=== PATIENT | female | born 1965 | race Caucasian/White ===

== ENCOUNTER → 2016-06-22 | Outpatient (CLI) | payer OTHER ==
[2016-06-22 14:02] LABS: BASO % 0.6 %; BASO ABS # 0.02 K/uL (0-0.2); COMPLETE YES; EOS % 8.4 %; HEMATOCRIT 42.5 % (37-47); IG% 0.3 %; LYMPH % 22.5 %; LYMPH ABS # 0.75 K/uL (1.2-3.4); MEAN CELL VOLUME 88.9 fL (80-100); MEAN CORPUSCULAR HEMOGLOBIN 31.4 pg (25-34); MEAN CORPUSCULAR HGB CONC 35.3 g/dl (32-36); MEAN PLATELET VOLUME 10.5 fL (7.4-10.4); MONO % 13.8 %; NEUT % 54.4 %; PLATELET COUNT 162 K/uL (130-400); RED BLOOD COUNT 4.78 M/uL (4.2-5.4); WHITE BLOOD COUNT 3.33 K/uL (4.8-10.8)
[2016-06-22 14:27] LABS: BLOOD UREA NITROGEN 8 mg/dl (7-18); BUN/CREATININE RATIO 18.4 (10-20); CALCIUM 8.6 mg/dl (8.5-10.1); CARBON DIOXIDE 25 mmol/L (21-32); CHLORIDE 100 mmol/L (98-107); CREATININE 0.45 mg/dl (0.60-1.20); GLUCOSE 91 mg/dl (70-99); POTASSIUM 3.7 mmol/L (3.5-5.1); SODIUM 136 mmol/L (136-145)
== END | disposition home or self-care (01) ==
LOC: C.LABMFLN 08:54
PROVIDERS: ATTEND Psychiatry & Neurology Neurology
DX: G40.909 Epilepsy, unspecified, not intractable, without status epilepticus (principal)

== ENCOUNTER → 2016-09-27 | Outpatient (CLI) | payer OTHER | END | disposition home or self-care (01) | LOC: C.LABMFLN 13:54 | PROVIDERS: ATTEND Family Medicine | DX: L29.2 Pruritus vulvae (principal) ==

== ENCOUNTER → 2017-02-22 | Outpatient (CLI) | payer OTHER | LOC: C.PAPS 11:46 | PROVIDERS: ATTEND Obstetrics & Gynecology | DX: Z12.4 Encounter for screening for malignant neoplasm of cervix (principal) ==

== ENCOUNTER → 2017-03-29 | Outpatient (CLI) | payer OTHER ==
--- NOTE | 2017-03-29 15:52 | MAMMOGRAPHY REPORT ---
BILATERAL DIGITAL SCREENING MAMMOGRAM WITH CAD: 03/29/2017 CLINICAL HISTORY: Routine screening. Patient has no complaints. TECHNIQUE: Current study was also evaluated with a Computer Aided Detection (CAD) system. Bilateral CC and MLO views were obtained. Note that the imaging is somewhat limited due to the patient's ment al condition; there is mild motion artifact on the right cc view. COMPARISON: Comparison is made to exams dated: 03/28/2016 mammogram, 03/25/2015 mammogram, 4 mammogram, 02/01/2012 mammogram - [facility], and 12/30/2008. BREAST COMPOSITION: The tissue of both breasts is extremely dense, which lowers the sensitivity of m ammography. FINDINGS: No suspicious masses, calcifications, or areas of architectural distortion are noted in ei ther breast. There has been no significant interval change compared to prior exams. Scattered bilater al benign-appearing calcifications are not significantly changed. IMPRESSION: ACR BI-RADS CATEGORY 2: BENIGN There is no mammographic evidence of malignancy. A 1 year screening mammogram is recommended. The pa tient will receive written notification of the results. Approximately 10% of breast cancers are not detected with mammography. A negative mammographic report should not delay biopsy if a clinically suggestive mass is present. Gabby Guadarrama M.D. ah/:03/29/2017 15:32:38 [employer]: Lisa WILL(Antonietta)(M), [facility] letter sent: Normal 1/2 BI-RADS Code: ACR BI-RADS Category 2: Benign
== END | disposition home or self-care (01) ==
LOC: C.MAMM 09:06
PROVIDERS: ATTEND Family Medicine
DX: Z12.31 Encounter for screening mammogram for malignant neoplasm of breast (principal)

== ENCOUNTER → 2017-05-10 | Outpatient (CLI) | payer OTHER ==
[2017-05-10 13:11] LABS: BASO % 0.4 %; BASO ABS # 0.01 K/uL (0-0.2); COMPLETE YES; EOS % 8.3 %; HEMATOCRIT 43.1 % (37-47); LYMPH ABS # 0.89 K/uL (1.2-3.4); MEAN CELL VOLUME 90.7 fL (80-100); MEAN CORPUSCULAR HEMOGLOBIN 31.6 pg (25-34); MEAN CORPUSCULAR HGB CONC 34.8 g/dl (32-36); MONO % 12.9 %; NEUT % 46.4 %; PLATELET COUNT 140 K/uL (130-400); RED BLOOD COUNT 4.75 M/uL (4.2-5.4); WHITE BLOOD COUNT 2.78 K/uL (4.8-10.8)
[2017-05-10 13:14] LABS: BLOOD UREA NITROGEN 8 mg/dl (7-18); CALCIUM 8.6 mg/dl (8.5-10.1); CARBON DIOXIDE 27 mmol/L (21-32); CHLORIDE 98 mmol/L (98-107); CREATININE 0.44 mg/dl (0.60-1.20); GLUCOSE 78 mg/dl (70-99); POTASSIUM 3.4 mmol/L (3.5-5.1); SODIUM 131 mmol/L (136-145)
[2017-05-10 13:19] LABS: ALB/GLOB RATIO 1.2 (0.9-2); ALKALINE PHOSPHATASE 90 U/L (45-117); ALT/SGPT 22 U/L (12-78); AST/SGOT 14 U/L (15-37)
[2017-05-13 22:27] LABS: PHENOBARBITAL 32.6 mg/L (15.0-40.0)
== END | disposition home or self-care (01) ==
LOC: C.LABMFLN 08:10
PROVIDERS: ATTEND Psychiatry & Neurology Neurology
DX: G40.909 Epilepsy, unspecified, not intractable, without status epilepticus (principal)

== ENCOUNTER 2017-06-17 09:48 | Emergency (ER) | payer OTHER ==
[~2017-06-17] VITALS: Ht 144.8 cm; Wt 48.6 kg
[2017-06-17 09:54] VITALS: TEMP 36.6; Ht 144.8 cm; Wt 48.6 kg
[2017-06-17] MEDS ORDERED: CLON1TAB3 PO (10:16)
[2017-06-17] MEDS ORDERED: DENO60SO SQ (10:16)
[2017-06-17] MEDS ORDERED: PRIM250T9 PO (10:16)
[2017-06-17 11:07] VITALS: O2SAT 97
[2017-06-17 11:17] LABS: BASO % 0.2 %; BASO ABS # 0.01 K/uL (0-0.2); EOS % 2.6 %; EOS ABS # 0.16 K/uL (0-0.5); HEMOGLOBIN 14.3 g/dL (12.0-16.0); IG# 0.03 K/uL (0.00-0.02); LYMPH % 15.8 %; LYMPH ABS # 0.97 K/uL (1.2-3.4); MEAN CELL VOLUME 93.3 fL (80-100); MEAN CORPUSCULAR HEMOGLOBIN 31.8 pg (25-34); MEAN PLATELET VOLUME 10.6 fL (7.4-10.4); MONO % 12.2 %; MONO ABS # 0.75 K/uL (0.11-0.59); NEUT % 68.7 %; NEUT ABS # 4.22 K/uL (1.4-6.5); PLATELET COUNT 148 K/uL (130-400); RED CELL DISTRIBUTION WIDTH CV 13.1 % (11.5-14.5); RED CELL DISTRIBUTION WIDTH SD 44.5 fL (36.4-46.3); WHITE BLOOD COUNT 6.14 K/uL (4.8-10.8)
[2017-06-17 11:36] LABS: ALBUMIN 3.8 gm/dl (3.4-5.0); ALT/SGPT 30 U/L (12-78); BLOOD UREA NITROGEN 12 mg/dl (7-18); CALCIUM 8.9 mg/dl (8.5-10.1); CARBON DIOXIDE 25 mmol/L (21-32); CREATININE 0.41 mg/dl (0.60-1.20); GLUCOSE 82 mg/dl (70-99); SODIUM 134 mmol/L (136-145)
--- NOTE | 2017-06-17 11:41 | EMERGENCY ROOM VISIT NOTE ---
History First contact with patient: 10:45 Chief Complaint: SEIZURE Stated Complaint: HIT HER HEAD, SEISURES Nursing Triage Summary: 1 week before patient fell and hit her head. -loc. on patient had 3 seizures. on 06/15 patient had another seizure. "she must have fell and hit her head again because her nose started bleeding." mother elvis medical attention then. mother states she has not had another seizure since saturday but was referred to ER by neurologist. hx of seizures. mother states seizures are usually more under control with medication. RN asked patient if she has any pain paitient points and rubs right ribs. History of Present Illness The patient is a 52 year old female who presents to the Emergency Room via private vehicle accompanied by mother with complaints of "hit her head, seizures ". The patient lives at home with her mother, who is in charge of her care. The patient does have history of seizures that is controlled with Klonopin. She follows with Dr. Mukherjee. The patient normally before struck her head against a cabinet accidentally. There was no loss of consciousness but then on had 3 seizures. She then notes that on June 15 there was another seizure. She believes that when she sees she fell to the ground and struck her head. This caused her nose to bleed. There is no bruising around her eyes. The mother notes that although the patient is close to her baseline, she is not her typical cheery self therefore prompting a call to the neurologist. She notes that she spoke with Dr. Jack Alexandra who recommended to go to the emergency department. The mother notes that although she does have a seizure history, they're not typically this frequent. The patient also complains of pain in the right rib region status post fall. Patient denies any other areas of pain. Review of Systems A complete 10-point Review of Systems was discussed with the patient, with pertinent positives and negatives listed in the History of Present Illness. All remaining Review of Systems questions can be considered negative unless otherwise specified. Past Medical/Surgical History Seizures. Family History Noncontributory Social History Smoking Status: Never Smoker Patient lives at home with mother. Current/Historical Medications Scheduled Clonazepam (Klonopin), 1 MG PO QPM Denosumab (Prolia), 60 MG SQ Q6MO Primidone (Mysoline), 250 MG PO QID Physical Exam Vital Signs Date Time Temp Pulse Resp B/P (MAP) Pulse Ox O2 Delivery O2 Flow Rate FiO2 06/17/17 13:28 103 20 120/71 98 06/17/17 13:04 103 20 120/71 98 Room Air 06/17/17 12:29 104 06/17/17 11:36 101 20 134/79 98 Room Air 06/17/17 11:07 97 Room Air 06/17/17 09:54 36.6 119 18 135/79 96 Room Air Physical Exam VITAL SIGNS - Vital signs and nursing notes were reviewed. Stable. Tachycardic. GENERAL -52-year-old female appearing her stated age who is in no acute distress. Communicates well with provider and answers questions appropriately. SKIN - Without rashes. No petechial rashes. There are bruises noted underneath the eyes. HEAD - NC/AT. EYES - PERRL with EOMI bilaterally. Sclera anicteric. EARS - No deformities of external structures noted on gross examination bilaterally. No pain elicited with palpation of the tragus bilaterally. External auditory canals without discharge or otorrhea. Tympanic membranes pearly fatima without retraction or bulging. No fluid or purulent material visualized behind the TM. Handle of malleus, umbo, cone of light, pars tensa/ flaccid all easily visualized. No hemotympanum. NOSE - Midline and without cyanosis. No epistaxis or purulent drainage noted. Septum midline without deviation or septal hematoma noted. MOUTH/OROPHARYNX - Without perioral cyanosis. Buccal mucosa pink and moist and without leukoplakia. Tongue midline with equal elevation of palate bilaterally. No tonsillar hypertrophy, erythema, or exudates noted. Fair dentition noted. NECK - Neck with FROM. No C-spine tenderness. LUNGS - Chest wall symmetric without accessory muscle use, intercostals retractions, or central cyanosis. Normal vesicular breath sounds CTA B/L. No wheezes, rales, or rhonchi appreciated. CARDIAC - RRR with S1/S2. No murmur, rubs, or gallops appreciated. ABDOMEN - Abdominal contour normal without pulsations or visible masses. BS normoactive all four quadrants. No tenderness, palpable masses, hepatosplenomegaly, or ascites noted. EXTREMITIES - No clubbing or peripheral cyanosis. No pretibial edema present. + 5/5 strength noted in UE/LE bilaterally. NEUROLOGIC - Cranial nerves II through XII grossly intact. Sensory intact to light touch throughout. PSYCH - A&O , and cooperates fully with examiner. Pt is very pleasant and interacts well with examiner. Medical Decision & Procedures ER Provider Diagnostic Interpretation: CT HEAD WITHOUT CONTRAST (CT) CLINICAL HISTORY: Seizure. Head trauma. COMPARISON STUDY: No previous studies for comparison. TECHNIQUE: Axial CT of the brain is performed from the vertex to the skull base. IV contrast was not administered for this examination. A dose lowering technique was utilized adhering to the principles of ALARA. CT DOSE: 537.48 mGy.cm FINDINGS: No intra or extra-axial mass lesions are visualized. There is no CT evidence of acute cortical infarction. There is no evidence of midline shift. There is no acute hemorrhage. No calvarial fractures are visualized. There are minor white matter hypodensities likely on a small vessel basis. There is no evidence of pathologic ventricular dilatation. There is no acute sinusitis. There is mild right maxilla sinus mucosal thickening. IMPRESSION: No acute intracranial findings Electronically signed by: Carlos Molina M.D. 06/17/2017 12:00 PM Dictated Date/Time: 06/17/2017 11:59 AM R RIBS UNILATERAL WITH PA CHEST CLINICAL HISTORY: Right rib pain status post trauma COMPARISON STUDY: No previous studies for comparison. FINDINGS: The erect chest reveals no pneumothorax. There is a right third rib fracture. There is also equivocal right second rib fracture. There is a 5 mm opacity at the right lung base. This is rather dense despite its small size, and is therefore likely postinflammatory IMPRESSION: 1. Right third rib fracture, and equivocal additional right second rib fracture. 2. No evidence of pneumothorax Electronically signed by: Carlos Molina M.D. 06/17/2017 12:34 PM Dictated Date/Time: 06/17/2017 12:31 PM Laboratory Results 06/17/17 11:05 Red Blood Count 4.50, Mean Corpuscular Volume 93.3, Mean Corpuscular Hemoglobin 31.8, Mean Corpuscular Hemoglobin Concent 34.0, Mean Platelet Volume 10.6, Neutrophils (%) (Auto) 68.7, Lymphocytes (%) (Auto) 15.8, Monocytes (%) (Auto) 12.2, Eosinophils (%) (Auto) 2.6, Basophils (%) (Auto) 0.2, Neutrophils # (Auto ) 4.22, Lymphocytes # (Auto) 0.97, Monocytes # (Auto) 0.75, Eosinophils # (Auto ) 0.16, Basophils # (Auto) 0.01 06/17/17 11:05 Test 06/17/17 11:05 06/17/17 11:11 White Blood Count 6.14 K/uL (4.8-10.8) Red Blood Count 4.50 M/uL (4.2-5.4) Hemoglobin 14.3 g/dL (12.0-16.0) Hematocrit 42.0 % (37-47) Mean Corpuscular Volume 93.3 fL (80-100) Mean Corpuscular Hemoglobin 31.8 pg (25-34) Mean Corpuscular Hemoglobin Concent 34.0 g/dl (32-36) Platelet Count 148 K/uL (130-400) Mean Platelet Volume 10.6 fL (7.4-10.4) Neutrophils (%) (Auto) 68.7 % Lymphocytes (%) (Auto) 15.8 % Monocytes (%) (Auto) 12.2 % Eosinophils (%) (Auto) 2.6 % Basophils (%) (Auto) 0.2 % Neutrophils # (Auto) 4.22 K/uL (1.4-6.5) Lymphocytes # (Auto) 0.97 K/uL (1.2-3.4) Monocytes # (Auto) 0.75 K/uL (0.11-0.59) Eosinophils # (Auto) 0.16 K/uL (0-0.5) Basophils # (Auto) 0.01 K/uL (0-0.2) RDW Standard Deviation 44.5 fL (36.4-46.3) RDW Coefficient of Variation 13.1 % (11.5-14.5) Immature Granulocyte % (Auto) 0.5 % Immature Granulocyte # (Auto) 0.03 K/uL (0.00-0.02) Prothrombin Time 10.3 SECONDS (9.0-12.0) Prothromb Time International Ratio 1.0 (0.9-1.1) Activated Partial Thromboplast Time 26.0 SECONDS (21.0-31.0) Partial Thromboplastin Ratio 1.0 Anion Gap 10.0 mmol/L (3-11) Est Creatinine Clear Calc Drug Dose 106.7 ml/min Estimated GFR () 136.7 Estimated GFR (Non- 118.0 BUN/Creatinine Ratio 27.8 (10-20) Calcium Level 8.9 mg/dl (8.5-10.1) Magnesium Level 2.3 mg/dl (1.8-2.4) Total Bilirubin 0.3 mg/dl (0.2-1) Aspartate Amino Transf (AST/SGOT) 17 U/L (15-37) Alanine Aminotransferase (ALT/SGPT) 30 U/L (12-78) Alkaline Phosphatase 150 U/L (45-117) Troponin I < 0.015 ng/ml (0-0.045) Total Protein 7.8 gm/dl (6.4-8.2) Albumin 3.8 gm/dl (3.4-5.0) Globulin 4.0 gm/dl (2.5-4.0) Albumin/Globulin Ratio 1.0 (0.9-2) Thyroid Stimulating Hormone (TSH) 1.180 uIu/ml (0.300-4.500) Urine Color YELLOW Urine Appearance TURBID (CLEAR) Urine pH 8.0 (4.5-7.5) Urine Specific [place] 1.022 (1.000-1.030) Urine Protein NEG (NEG) Urine Glucose (UA) NEG (NEG) Urine Ketones NEG (NEG) Urine Occult Blood NEG (NEG) Urine Nitrite NEG (NEG) Urine Bilirubin NEG (NEG) Urine Urobilinogen NEG (NEG) Urine Leukocyte Esterase SMALL (NEG) Urine WBC (Auto) 10-30 /hpf (0-5) Urine RBC (Auto) 0-4 /hpf (0-4) Urine Hyaline Casts (Auto) 10-30 /lpf (0-5) Urine Epithelial Cells (Auto) >30 /lpf (0-5) Urine Bacteria (Auto) NEG (NEG) Urine Renal Epithelial Cells /lpf (0-5) Urine Crystals See comments (NONE PRSENT) Medical Decision Patient was seen and evaluated as above. She presents to us today status post numerous seizures over the past few weeks. She is well appearance, nontoxic appearing and is human dynamically stable. She converses through mostly hand gesture. She notes pain in the right rib region. X-ray was obtained and reveals rib fracture. CT scan was obtained of the patient's head and there was no acute fracture or dislocation. I did obtain baseline labs. There is no concerning leukocytosis or anemia. Coags are normal. Metabolic process reveals no evidence of kidney or liver failure. Alkaline phosphatase is high at 150. Troponin negative. Urine reveals small amount leukocytes and white blood cells, however there are numerous epithelial cells. I favor this to be most likely a contaminated sample and will await culture. Clonazepam level pending. Case was discussed with the on-call neurologist, Dr. Alexandra. This is to refer the patient in. He notes it was secondary to the concern that she could have a skull fracture as she struck and hit her head many times, and was black and blue on the face. I informed him that she has not had a seizure here , and there is no acute fracture or bleeding. He notes she can follow-up in the outpatient setting with him. I believe this is reasonable. They're to call tomorrow if they do not receive a phone call from their office. Bedside EKG was also obtained and reveals sinus tachycardia, with occasional PVCs. Possible left atrial enlargement. She appears stable for outpatient management. She was educated upon management, educated upon worrisome symptoms in which to return, had questions answered prior to discharge, and was discharged home in good condition. Blood pressure elevated I believe secondary to situation. Medication list reviewed. In the evaluation and treatment of this patient, the following differential diagnoses were considered: Concussion, Contrecoup Injury, Brain Tumor, Depression, Encephalitis, Hypothyroidism, Meningitis, CVA, TIA, Migraine, Cluster Headache, Intracranial Abnormality, Intracranial Hemorrhage, Subdural Hematoma, Subarachnoid Hemorrhage, Hydrocephalus. Impression Primary Impression: Seizure Additional Impression: Rib fracture Departure Information Dispostion Home / Self-Care Condition GOOD Referrals María Tian M.D. (PCP) Jack Alexandra M.D. Patient Instructions My [facility] [address] Additional Instructions You were seen in the emergency department for seizure. CAT scan of the head reveals no bleeding. There is a rib fracture on the right side. Possibly 2. I recommend rest. Please expect a phone call from your neurologist office. If they do not call you by tomorrow please call them to schedule follow-up. Please return with any new/concerning symptoms. Problem Qualifiers
[2017-06-17 11:47] LABS: ALKALINE PHOSPHATASE 150 U/L (45-117); AST/SGOT 17 U/L (15-37); TOTAL PROTEIN 7.8 gm/dl (6.4-8.2)
--- NOTE | 2017-06-17 12:01 | DIAGNOSTIC IMAGING REPORT ---
CT HEAD WITHOUT CONTRAST (CT) CLINICAL HISTORY: Seizure. Head trauma. COMPARISON STUDY: No previous studies for comparison. TECHNIQUE: Axial CT of the brain is performed from the vertex to the skull base. IV contrast was not administered for this examination. A dose lowering technique was utilized adhering to the principles of ALARA. CT DOSE: 537.48 mGy.cm FINDINGS: No intra or extra-axial mass lesions are visualized. There is no CT evidence of acute cortical infarction. There is no evidence of midline shift. There is no acute hemorrhage. No calvarial fractures are visualized. There are minor white matter hypodensities likely on a small vessel basis. There is no evidence of pathologic ventricular dilatation. There is no acute sinusitis. There is mild right maxilla sinus mucosal thickening. IMPRESSION: No acute intracranial findings Electronically signed by: Carlos Molina M.D. 06/17/2017 12:00 PM Dictated Date/Time: 06/17/2017 11:59 AM
--- NOTE | 2017-06-17 12:35 | DIAGNOSTIC IMAGING REPORT ---
R RIBS UNILATERAL WITH PA CHEST CLINICAL HISTORY: Right rib pain status post trauma COMPARISON STUDY: No previous studies for comparison. FINDINGS: The erect chest reveals no pneumothorax. There is a right third rib fracture. There is also equivocal right second rib fracture. There is a 5 mm opacity at the right lung base. This is rather dense despite its small size, and is therefore likely postinflammatory IMPRESSION: 1. Right third rib fracture, and equivocal additional right second rib fracture. 2. No evidence of pneumothorax Electronically signed by: Carlos Molina M.D. 06/17/2017 12:34 PM Dictated Date/Time: 06/17/2017 12:31 PM
[2017-06-17 13:28] VITALS: BP 120/71; PULSE 103; O2SAT 98
== END 2017-06-17 13:31 | disposition home or self-care (01) ==
LOC: C.EDB 09:50
DX: R56.9 Unspecified convulsions (principal); S22.31XA Fracture of one rib, right side, initial encounter for closed fracture; W18.39XA Other fall on same level, initial encounter

== ENCOUNTER 2019-06-13 08:07 | Inpatient (IN) ==
[2019-06-13] MEDS ORDERED: LORazepam 1 MG/2 ML VIAL IV STA (09:09)
[2019-06-13] MEDS ORDERED: SODIUM CHLORIDE 0.9% 500 ML IV SCH (09:15)
[2019-06-13 09:22] LABS: Basophils # (auto) 0.01 K/uL (0-0.2); Basophils % (auto) 0.2 %; Eosinophils # (auto) 0.15 K/uL (0-0.5); Eosinophils % (auto) 3.7 %; Hematocrit (blood only) 39.3 % (37-47); Hemoglobin 13.8 g/dL (12.0-16.0); Immature Granulocytes # (auto) 0.01 K/uL (0.00-0.02); Immature Granulocytes % (auto) 0.2 %; Lymphocytes # (auto) 0.86 K/uL (1.2-3.4); Lymphocytes % (auto) 21.3 %; Mean Corpuscular Hemoglobin 32.2 pg (25-34); Mean Corpuscular Hgb Conc 35.1 g/dL (32-36); Mean Corpuscular Volume 91.6 fL (80-100); Mean Platelet Volume 10.7 fL (7.4-10.4); Monocytes # (auto) 0.52 K/uL (0.11-0.59); Monocytes % (auto) 12.9 %; Neutrophils # (auto) 2.49 K/uL (1.4-6.5); Neutrophils % (auto) 61.7 %; Platelet Count 109 K/uL (130-400); RDW Coefficient of Variation 12.6 % (11.5-14.5); RDW Standard Deviation 41.9 fL (36.4-46.3); Red Blood Count 4.29 M/uL (4.2-5.4); White Blood Count 4.04 K/uL (4.8-10.8)
[2019-06-13 09:33] LABS: Albumin Level 3.5 gm/dl (3.4-5.0); BUN Creatinine Ratio 13.7 (10-20); Calcium 8.3 mg/dl (8.5-10.1); Creatinine Clr Calc Pharmacy 107.5 ml/min; Est GFR (African American) 133.7; Est GFR (Non-African American) 115.4; Magnesium 2.1 mg/dl (1.8-2.4); Potassium 3.8 mmol/L (3.5-5.1)
[2019-06-13 09:36] LABS: Albumin Globulin Ratio 1.1 (0.9-2); Bilirubin,Total 0.3 mg/dl (0.2-1); Globulin 3.1 gm/dl (2.5-4.0); Total Protein 6.6 gm/dl (6.4-8.2)
--- NOTE | 2019-06-13 10:58 | Emergency Department Note ---
Entered by Marine Alegre acting as a scribe for History of Present Illness General Chief complaint: Seizure Stated complaint: seizure Time Seen by Provider: 06/13/19 09:00 Source: family Limitations: clinical acuity History of Present Illness Provider complaint: Seizure Onset (ago): day(s) 3 Location: head Pain Consistency: + constant Quality: + constant Associated symptoms: + seizure and + other (Positive: unable to comprehend, unable to speak, unable to recognize family members ) The patient is a 54 year old female with past medical history of DCIS, osteoporosis, epilepsy, lupectomy of breast, who presents to the ED with complaints of constant seizures that started 3 days ago. The family reports they called neurology and the patient is unable to get in until Saturday. They note the patients seizures last from seconds to two minutes. The family states the patient has had 6 episodes of seizures today and are all different. They report when the patient comes out of the seizure she is unable to speak right or recognize who is who. They additionally states when she is having seizures, she is able to hear them but unable to comprehend. The family notes the patient was seizure free for 11 months until 3 days ago. They report they took the patient to the doctor on and was diagnosed with UTI and prescribed antibiotics. . Home Medications Home Medications Medication Instructions Recorded Confirmed Type omeprazole 20 mg capsule,delayed 20 mg PO DAILYBB 01/15/19 06/13/19 History release primidone 250 mg tablet 250 mg PO QID 01/15/19 06/13/19 History denosumab 60 mg/mL subcutaneous 60 mg SQ Q6M ml 02/03/19 06/13/19 History syringe clonazepam 0.5 mg disintegrating 0.5 mg PO .COMPLEX 30 Days #34 tab 03/02/19 06/13/19 Rx tablet cefdinir 250 mg PO BID 06/13/19 06/13/19 History lacosamide [Vimpat] 150 mg PO BID 06/13/19 06/13/19 History Allergies Allergy/AdvReac Type Severity Reaction Status Date / Time levetiracetam Allergy Unknown unknown Unverified 06/13/19 08:53 pregabalin Allergy Unknown unkown Unverified 06/13/19 08:53 Past Med/Surg History Medical History Acid reflux disease (Chronic) Adenomatous colon polyp (Chronic) Allergic rhinitis (Chronic) 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) Epilepsy (Chronic) History of abnormal mammogram History of esophageal stricture History of rib fracture right Hx of radiation therapy (Resolved) Osteoporosis (Chronic) Surgical History H/O colonoscopy History of esophagogastroduodenoscopy (EGD) History of throat surgery throat stretched S/P lumpectomy of breast (Resolved) Family History Father Diabetes Mother Breast cancer Aunt Coronary heart disease paternal aunt Uterine cancer maternal aunt Sister Cystic fibrosis Hypertension Grandfather (Paternal) Diabetes Grandfather (Maternal) Prostate cancer Social History Feels Safe at Home: Yes Smoking Status: Never smoker Hx Alcohol Use: No Hx Substance Use: No Review of Systems See HPI for pertinent positives & negatives. Other (ROS limited secondary to clinical acuity. ) Physical Exam Vital Signs Vital Signs - 24 hr 06/13/19 08:14 06/13/19 09:23 06/13/19 10:12 Temperature 36.9 C Temperature Source Oral Pulse Rate 105 H Pulse Rate [Finger] 103 H 99 H Respiratory Rate 18 20 16 Respiratory Effort / Characteristics Non-Labored Non-Labored Respiratory Depth Normal Normal Normal Blood Pressure 122/89 Blood Pressure [Right Arm] 115/71 110/61 Blood Pressure Mean 100 Blood Pressure Mean [Right Arm] 85 77 Pulse Oximetry 99 97 96 Oxygen Delivery Method Room Air Room Air Room Air Sepsis Recent Fever Within 48 Hours No Sepsis New/Unexplained Change in Mental Status No Sepsis Action Taken by Nursing No Action Required CONSTITUTIONAL/VITAL SIGNS: Reviewed / noted above. GENERAL: Non-toxic in appearance. INTEGUMENTARY: Warm, dry, and [place]. HEAD: Normocephalic. EYES: without scleral icterus or trauma. ENT/OROPHARYNX: clear and moist. LYMPHADENOPATHY/NECK: Is supple without lymphadenopathy or meningismus. RESPIRATORY: Lungs clear and equal. CARDIOVASCULAR: Regular rate and rhythm. GI/ABDOMEN: Soft and nontender. No organomegaly or pulsatile mass. No rebound or guarding. Normal bowel sounds. EXTREMITIES: Warm and well perfused. BACK: No CVA tenderness. NEUROLOGICAL: Intact without focal deficits.Does not follow commands. The patient was having a tonic clonic seizure during the exam that lasted for a co uple of minutes. Chronic findings related to chronic MR. PSYCHIATRIC: normal affect. MUSCULOSKELETAL: Normally developed with good muscle tone. Course Course 09: The patient was evaluated in room B6. A complete history and physical exam was performed. 1029: I discussed the patients case with Dr. Rodriguez, [facility] Hospitalist. The patient will be evaluated for further management. 1040: Upon reevaluation, the patient is resting comfortably. I discussed laboratory and radiographic results with the family. The family verbalized agreement of the treatment plan. The patient will be evaluated for further management and care. Administered Medications Discontinued Medications Lorazepam (Ativan) 1 mg in 2 mls @ 2 mls/min IV NOW STA Stop: 06/13/19 09:10 Last Admin: 06/13/19 09:21 Dose: 1 mls/min Documented by: [id number] Sodium Chloride (Nss) 500 mls @ 999 mls/hr IV .Q31M RONAK Stop: 06/13/19 09:45 Last Infusion: 06/13/19 09:55 Dose: 0 mls/hr Documented by: [id number] Admin: 06/13/19 09:22 Dose: 999 mls/hr Documented by: [id number] Medical Decision Making Differential Diagnosis Differential diagnosis: Etiologies such as infection, hypoglycemia, electrolyte abnormalities, cardiac sources, intracerebral event, trauma, toxicologic, neurologic, as well as others were entertained. Medical Records Attestation: I reviewed the patient's medical records. Home Medications Current Medication List: was personally reviewed by me Laboratory Data Attestation: I reviewed the patient's lab results. Result diagrams: 06/13/19 08:19 06/13/19 08:19 Lab Results 06/13/19 06/13/19 06/13/19 Range/Units 08:19 08:19 08:19 WBC 4.04 L (4.8-10.8) K/uL RBC 4.29 (4.2-5.4) M/uL Hgb 13.8 (12.0-16.0) g/dL Hct 39.3 (37-47) % MCV 91.6 (80-100) fL MCH 32.2 (25-34) pg MCHC 35.1 (32-36) g/dL RDW Std Deviation 41.9 (36.4-46.3) fL RDW Coeff of [place]acio 12.6 (11.5-14.5) % Plt Count 109 L (130-400) K/uL MPV 10.7 H (7.4-10.4) fL Immature Gran % (Auto) 0.2 % Neut % (Auto) 61.7 % Lymph % (Auto) 21.3 % Rock % (Auto) 12.9 % Eos % (Auto) 3.7 % Baso % (Auto) 0.2 % Immature Gran # (Auto) 0.01 (0.00-0.02) K/uL Neut # (Auto) 2.49 (1.4-6.5) K/uL Lymph # (Auto) 0.86 L (1.2-3.4) K/uL Rock # (Auto) 0.52 (0.11-0.59) K/uL Eos # (Auto) 0.15 (0-0.5) K/uL Baso # (Auto) 0.01 (0-0.2) K/uL Sodium 131 L (136-145) mmol/L Potassium 3.8 (3.5-5.1) mmol/L Chloride 100 (98-107) mmol/L Carbon Dioxide 26 (21-32) mmol/L Anion Gap 5.0 (3-11) BUN 6 L (7-18) mg/dl Creatinine 0.42 L (0.6-1.2) mg/dl Est Cr Clr Drug Dosing 107.5 ml/min Est GFR ( Amer) 133.7 Est GFR (Non-Af Amer) 115.4 BUN/Creatinine Ratio 13.7 (10-20) Glucose 85 (70-99) mg/dl Calcium 8.3 L (8.5-10.1) mg/dl Phosphorus Cancelled 2.0 L Magnesium Cancelled 2.1 Total Bilirubin 0.3 (0.2-1) mg/dl AST 11 L (15-37) U/L ALT 19 (12-78) U/L Alkaline Phosphatase 74 (45-117) U/L Total Creatine Kinase Cancelled 38 Total Protein 6.6 (6.4-8.2) gm/dl Albumin 3.5 (3.4-5.0) gm/dl Globulin 3.1 (2.5-4.0) gm/dl Albumin/Globulin Ratio 1.1 (0.9-2) ECG Data Attestation: I personally reviewed and interpreted this ECG as follows: Indication: + other (seizures) Rate (beats per minute): 100 Rhythm: + normal sinus ECG Intervals/blocks: + Normal QT-c ECG ST segments: no ST elevation ECG Findings: no PVCs Blood Pressure Blood Pressure Findings: Normal blood pressure Blood Pressure Disposition: did not require urgent referral MDM Narrative This is a 54-year-old female who presents to the ED with a chief complaint of recurrent seizures. The patient was diagnosed with a urinary tract infection about a week ago at [facility]. The patient has a history of MR, according to the family. He does have a history of seizures and has been seizure-free for the past 7 months on primidone and lacosamide. The patient was started on cefdinir last week after the seizures. We did check the records, [place] did not do a culture. The patient presents today with the family stating that she has had several seizures per day. The patient has an appointment to see Dr. Neville on Saturday. Today the patient has had at least 6- 8 seizures. She is not waking up between seizures, according to the family. Upon her arrival, the patient had a tonic-clonic seizure and during my evaluation after the patient arrived she also had a tonic-clonic seizure lasting about 2 minutes. The patient was given IV Ativan. CBC and chemistry panel was unremarkable. A cath urine is being obtained. Because of the recurrent seizures at least 8 today, the patient will be seen by the hospitalist for further evaluation and care as an inpatient. Impression & Plan Status epilepticus Discharge Plan Visit Data Chief Complaint: Seizure Stated Complaint: seizure ED Provider: Troy Gutierrez Discharge Problem: Status epilepticus Patient Disposition: Being Evaluated by Hospitalist Forms Stand Alone Forms: My [facility] [place] [employer] Prescriptions Prescriptions: No Action clonazepam 0.5 mg tablet,disintegrating 0.5 mg PO .COMPLEX 30 Days Qty: 34 RF: 5 Prolia 60 mg/mL syringe 60 mg SQ Q6M RF: 0 omeprazole 20 mg capsule,delayed release(DR/EC) 20 mg PO DAILYBB RF: 0 primidone 250 mg tablet 250 mg PO QID RF: 0 cefdinir 250 mg/5 mL suspension for reconstitution 250 mg PO BID RF: 0 Vimpat 10 mg/mL solution 150 mg PO BID RF: 0 Referrals Referrals: María Tian MD [Primary Care Provider] - The scribe's documentation has been prepared under my direction and personally reviewed by me in its entirety. I confirm that the note above accurately reflects all work, treatment, procedures, and medical decision making performed by me.
[2019-06-13 11:04] LABS: Appearance Urine Clear (Clear); Bilirubin Urine Negative (Negative); Blood Urine Negative (Negative); Color Urine Yellow; Glucose Urine UA Negative (Negative); Ketones Urine Negative (Negative); Leukocyte Esterase Urine Negative (Negative); Nitrite Urine Negative (Negative); Protein Urine Negative (Negative); Specific Gravity Urine 1.008 (1.000-1.030); Urobilinogen Urine Negative (Negative)
--- NOTE | 2019-06-13 11:58 | History & Physical Report ---
Date of Service June 13, 2019 Assessment & Plan (1) Status epilepticus: Worsening seizures, possibly related to UTI Neuro c/s pending PRN ativan, seizure precautions Missed AM vinpat dosing, give now Vinpat was to be increased from 10mg to 15mg, however family did not feel comfortable with this--ordered at 10mg dosing due to this Pt with recent dx/tx of breast cancer, t/c ?? brain mets given family feels seizures are different now Will defer imaging to neurology to avoid repeat imaging (none seen in our system) (2) DCIS (ductal carcinoma in situ) of breast: s/p OR (01/2019) and radiation (finished 03/2019) Is to be on liquid tamoxifen, however is not taking due to family concerns about side effects Follows with Dr. Leahy if needed (3) UTI (urinary tract infection): Continue cefdiner as prior Does not appear cx was done at [place] Cx pending WBC WNL (4) Hypophosphatasia: Replace and monitor (5) Acid reflux disease: continue home meds (6) Developmental delay, severe: Family will stay with pt at all times at their preference Advised that they are to let nursing know if they leave bedside (7) DVT prophylaxis: SCDs History of Present Illness Primary Care Provider: María Tian MD 54 y/o F who was brought in by her family due to concerns of worsening seizures. Family states that pt was noted to have a fever on Saturday. She has a hx of seizures, but her last seizure was in July. She started to have seizures on and was taken to the ED in [place]. She was dx with UTI and started on cefdenir at that time. ED spoke with Dr. Alexandra's office and it was recommended that her vimpat be increased from 10mg to 15mg. Pt has been taking the cefdenir since that time. They did attempt to give an increased vinpat dose on , however pt seemed worse with that dosing so they have not continued with this. Family states that pt has had no specific complaints to them, but that she has been overall less communicative. She can generally express if she has pain or doesn't feel well, ask for things, etc, but has not been talking much the last few days. Her seizures have gotten worse the last few days. She has been tolerating her usual PO, which is liquids, pureed foods. No further fever per family. No v/d with entire episode. There have been no c/o headaches or vision changes recently. Family feels pt's seizures are different this week and the worst they have seen from her. Pt denies pain, n/v. Family denies SOB, chest pain, abd pain, n/v/c/d, LE pain or swelling. Pt had followed with Dr. Perkins, who has recently left the area. She has an appt with Dr. Alexandra on Saturday. Pt had a recent dx of breast cancer. She had surgery for this in January and finished radiation in March. She is supposed to be taking a liquid tamoxifen, however mother only gave it for about 1.5 months due to pt "acting funny" and appearing to "have infections" while on this. "It just had too many side effects. I wasn't comfortable to keep giving it." She has upcoming f/u with Dr. Leahy. Pt was noted to have a tonic clonic seizure in the ED. She was given ativan and this resolved. Allergies Allergy/AdvReac Type Severity Reaction Status Date / Time levetiracetam Allergy Unknown unknown Unverified 06/13/19 08:53 pregabalin Allergy Unknown unkown Unverified 06/13/19 08:53 Home Medications Home Medications Medication Instructions Recorded Confirmed Type omeprazole 20 mg capsule,delayed 20 mg PO DAILYBB 01/15/19 06/13/19 History release primidone 250 mg tablet 250 mg PO QID 01/15/19 06/13/19 History denosumab 60 mg/mL subcutaneous 60 mg SQ Q6M ml 02/03/19 06/13/19 History syringe clonazepam 0.5 mg disintegrating 0.5 mg PO .COMPLEX 30 Days #34 tab 03/02/19 06/13/19 Rx tablet cefdinir 250 mg PO BID 06/13/19 06/13/19 History lacosamide [Vimpat] 150 mg PO BID 06/13/19 06/13/19 History Past Med/Surg History Medical History Acid reflux disease (Chronic) Adenomatous colon polyp (Chronic) Allergic rhinitis (Chronic) 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) Epilepsy (Chronic) History of abnormal mammogram History of esophageal stricture History of rib fracture right Hx of radiation therapy (Resolved) Osteoporosis (Chronic) Surgical History H/O colonoscopy History of esophagogastroduodenoscopy (EGD) History of throat surgery throat stretched S/P lumpectomy of breast (Resolved) Family History Father Diabetes Mother Breast cancer Aunt Coronary heart disease paternal aunt Uterine cancer maternal aunt Sister Cystic fibrosis Hypertension Grandfather (Paternal) Diabetes Grandfather (Maternal) Prostate cancer Social History Feels Safe at Home: Yes Smoking Status: Never smoker Hx Alcohol Use: No Hx Substance Use: No Review of Systems Review of Systems: Pt responds to some ROS questions, others she does not answer. As noted above Physical Exam Constitutional: well nourished and cooperative; no acute distress Eyes: normal visual gutierrez by confrontation and + anicteric sclerae Neck: normal visual inspection and trachea midline Respiratory: normal respiratory effort, lungs clear to auscultation Cardiovascular: Rate/Rhythm: regular rate and regular rhythm Gastrointestinal (Abdomen): Inspection/Auscultation: abdomen not distended Percussion/Palpation: abdomen soft; abdomen nontender Musculoskeletal: Head/Neck/Chest: normocephalic and head atraumatic negative for edema, peripheral pulses intact Skin: no rashes, warm and dry Neurologic: awake Speech / Cognition: + abnormal speech answers some questions, others not Psychiatric: Orientation: alert Affect: euthymic affect pleasant, smiles when smiled at Results & Data Vital Signs (Past 12 Hours) Vital Signs Temp Pulse Pulse Resp BP BP Pulse Ox 06/13/19 10:12 99 H 16 110/61 96 06/13/19 09:23 103 H 20 115/71 97 06/13/19 08:14 36.9 C 105 H 18 122/89 99 Code Status & VTE Plan Code Status DNR/DNI per mother and sister. "We have seen that with other family members and don't want to put her through that." VTE Prophylaxis Plan VTE Prophylaxis will be ordered: Yes PG Care Time/CCT Total # of Minutes Spent Total Time Spent with Patient: Total time spent is greater than 50% in coordination of care (as documented) at patient's floor/unit and/or counseling patient:
[2019-06-13] MEDS ORDERED: LACOSAMIDE 50 MG TABLET PO SCH (13:07)
[2019-06-13] MEDS ORDERED: POTASSIUM PHOS 3 MMOL/1 ML INFUSION IV STA (13:07)
[2019-06-13] MEDS ORDERED: LORazepam 1 MG/2 ML VIAL IV PRN (13:07)
[2019-06-13] MEDS ORDERED: MAGNESIUM HYDROXIDE SUSP 30 ML UDC PO PRN (13:07)
[2019-06-13] MEDS ORDERED: ONDANSETRON INJ 2 MG/ML 2 ML VIAL IV PRN (13:07)
[2019-06-13] MEDS ORDERED: clonazePAM 0.5 MG TAB PO PRN (13:18)
[2019-06-13] MEDS ORDERED: POTASSIUM PHOSPHATE 15 MMOL in SODIUM CHLORIDE 0.9% 250 ML IV ONE (14:00)
[2019-06-13] MEDS: NON-FORMULARY MEDICATION (Denosumab 60 MG) SQ SCH (15:09)
[2019-06-13] MEDS: PRIMIDONE 250 MG TAB PO SCH ×3 (15:12→21:50)
[2019-06-13] MEDS: CEFDINIR 125 MG/5 ML 60 ML BTL PO SCH ×2 (16:30→21:50)
[2019-06-13] MEDS ORDERED: Nursing to Pharmacy Communication ONE (16:32)
[2019-06-13] MEDS ORDERED: VALPROATE SOD 500 MG in DEXTROSE 5% 50 ML IV STA (16:35)
[2019-06-13] MEDS: VALPROATE SOD 250 MG in DEXTROSE 5% 50 ML IV SCH (18:26)
[2019-06-13] MEDS: clonazePAM 0.5 MG TAB PO SCH (21:50)
[2019-06-13] MEDS: LACOSAMIDE 50 MG TABLET PO SCH (21:50)
[2019-06-14] MEDS: VALPROATE SOD 250 MG in DEXTROSE 5% 50 ML IV SCH ×2 (00:11→05:53)
[2019-06-14] MEDS: PANTOprazole 40 MG TAB PO SCH (05:54)
[2019-06-14 06:43] LABS: BUN Creatinine Ratio 13.1 (10-20); Calcium 8.2 mg/dl (8.5-10.1); Creatinine Clr Calc Pharmacy 124.3 ml/min; Est GFR (African American) 140.7; Est GFR (Non-African American) 121.4; Potassium 4.3 mmol/L (3.5-5.1)
--- NOTE | 2019-06-14 09:55 | Neurology Consultation ---
Date of Consultation June 14, 2019 Assessment & Plan (1) Epilepsy: (2) Chronic static encephalopathy: Patient has an underlying encephalopathy since with [id number]-[id number] mental retardation. She has a seizure disorder consistent with a generalized epilepsy, fairly well controlled on primidone, clonazepam at bedtime, and Vimpat. Vimpat was giving her side effects according to her family present at bedside. Although she was doing well she has had a number of breakthrough seizures over the last 4 days. These seem to be partial seizures and I am not sure of some of them are more of a stress reaction than actual epilepsy. Nevertheless, she seemed to respond positively to the IV Depakote. This morning her level was subtherapeutic at 27. Recommendations: 1. She will receive 500 milligrams of IV Depakote now and then a final dose of 250 milligrams IV at noon today. We will then convert her to 500 milligrams twice daily of Depakote sprinkles. 2. Follow Depakote levels each a.m. while she is in the hospital. 3. Keep clonazepam and primidone the same. 4. Lower Vimpat to 100 milligrams twice daily for 1 week, then 100 milligrams once daily for 1 week, then discontinue. 5. Primidone and valproic acid have probable drug drug interactions affecting the levels. However I will keep the proven on the same and as I add Depakote I can follow the level to keep both in a good therapeutic range. 6. Increase activity as able. 7. Consider MRI of the brain with without contrast, but I am not sure she would hold still for this in the hospital. 8. I would be happy to follow her as an outpatient and see her back in 3-4 weeks. Overall, I spent a total of 100 minutes with this case including review of records, direct evaluation the patient bedside, and discussing the case with the patient, her mother, and sister, at bedside, her RN at bedside, and Dr. Mcmanus including differential diagnosis and treatment options. History of Present Illness Reason for Consultation: The patient is a 54-year-old, who I was asked to see at the request of Dr. Rodriguez, for neurologic consultation regarding seizures Requesting Physician: Dr. Rodriguez Attending Physician: Jean Mcmanus History of Present Illness Patient is accompanied by her mother and sister Mary Lou at bedside during the evaluation. Patient has a history of chronic static encephalopathy (fhuz-da-dafcghyj mental retardation) and started having seizures in early teen years. She has had them intermittently and they typically consist of a generalized tonic clonic activity. She will jerk her limbs and then go into a tonic phase with flexion of the arms in extension of legs grunting and the whole spell lasting about a minute. She is flaccid and sleepy for a few minutes thereafter then wakes. Patient had tried some medication in the past and had side effects to Lyrica and levetiracetam. She may have tried topiramate in past. Patient has had CT scans of the head intermittently which have been. An MRI of the brain may have been the over 15 years ago but I do not have this result. Patient is pleasant, outgoing, and friendly. She knows a few words and basically feeds herself and takes care of daily hygiene activities with supervision. She goes to a daycare program She has been on primidone for [address] Harper in August 2015 who initiated Onfi and clonazepam at bedtime. Onfi made her irritable and this was discontinued. At the end of 2016 she was initiated on Vimpat , and kept on primidone and clonazepam. She has been on this regimen since and most recently saw neurology in February of 2019 was kept the same. Phenobarbital level was 28.6 and primidone level 8.7 in March. Her last seizure was in July of 2018. Her mother believes that the Vimpat makes her irritable/agitated, talkative, and even can swear". On June 10 patient had 5 seizures of a different type. They consisted of the patient staring, moving her right hand and not being overly responsive. She could say a word an even make eye contact for 2nd. These would last anywhere from seconds to up to 1 minute. Sometimes she would have some confusion afterwards. Patient went to the [place] emergency room and a urinary tract infection was noted. She was put on antibiotic. She had 3 seizures on June 11, for seizures on June 12, at 3 seizures on June 13. Patient was admitted June 13 and at 0814 temperature was 36.9, pulse 105, respiratory 18, blood pressure 122/89, and O2 saturation 99 percent. She was not following commands well in the ER and a generalized tonic-clonic seizure was witnessed lasting a minute or 2. She was postictal afterwards. No focal deficits were noted on exam. Laboratory studies showed a normal CBC and Chem profile except for a sodium of 131 and calcium of 8.3. Her sodium has been chronically low. Last seizure was at [id number] 13 and she was given Depakote IV. She had no seizures overnight and was in sinus rhythm although she did have a 1 time 7 beat run of V-tach at 0200 today. I spent about an hour in the room performing a history and physical examination and after I left the room patient's mother told the patient that she was going to leave to go to the bathroom when the patient got upset and injured into a brief spell where she was staring and twitching her right upper extremity. She had increased saliva. The time I got back to the room the spell was over (lasted seconds only). Allergies Allergy/AdvReac Type Severity Reaction Status Date / Time levetiracetam Allergy Unknown unknown Unverified 06/13/19 08:53 pregabalin Allergy Unknown unkown Unverified 06/13/19 08:53 Home Medications Home Medications Medication Instructions Recorded Confirmed Type omeprazole 20 mg capsule,delayed 20 mg PO DAILYBB 01/15/19 06/13/19 History release primidone 250 mg tablet 250 mg PO QID 01/15/19 06/13/19 History denosumab 60 mg/mL subcutaneous 60 mg SQ Q6M ml 02/03/19 06/13/19 History syringe clonazepam 0.5 mg disintegrating 0.5 mg PO .COMPLEX 30 Days #34 tab 03/02/19 06/13/19 Rx tablet cefdinir 250 mg PO BID 06/13/19 06/13/19 History lacosamide [Vimpat] 150 mg PO BID 06/13/19 06/13/19 History Patient History Medical History Acid reflux disease (Chronic) Adenomatous colon polyp (Chronic) Allergic rhinitis (Chronic) 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) Developmental delay, severe Epilepsy (Chronic) History of abnormal mammogram History of esophageal stricture History of rib fracture right Hx of radiation therapy (Resolved) Osteoporosis (Chronic) Surgical History H/O colonoscopy History of esophagogastroduodenoscopy (EGD) History of throat surgery throat stretched S/P lumpectomy of breast (Resolved) Family History Father , age 60 of an [place] Diabetes Myocardial infarction Mother Breast cancer Aunt Coronary heart disease paternal aunt Uterine cancer maternal aunt Sister Cystic fibrosis Hypertension Grandfather (Paternal) Diabetes Grandfather (Maternal) Prostate cancer Social History Preferred Language: Scottish Communication Ability: dev delay Communication Ability Comment: developmental delay, severe, history Tower Director Required: No Beliefs That Will Affect Care: None Current Living Situation: Parent Other Information That Helps Us Care for You: No Feels Safe at Home: Yes Safety Concerns: Feels Safe At This Time Smoking Status: Never smoker Do You Dip or Chew Tobacco: No ; Second Hand Exposure: No ; Tobacco Cessation Education Requested by Patient: No Hx Alcohol Use: No Hx Substance Use: No Review of Systems Review of Systems: Unobtainable due to cognitive status Patient will follow some commands fairly well but cannot answer with words. It is clear she does not have any headache or pain (including chest pain or abdominal pain), but given her mental status/cognitive abilities review of systems cannot be obtained. Physical Exam Physical Exam: The patient is right-handed. The patient is awake, alert, and attentive. Speech is somewhat dysarthric but she has no teeth in also. Mood is quite good and she is pleasant and cooperative. She will follow one-step commands by imitation. She can say a few words although it is difficult for her to pronounce them . She is not oriented to place or time. She knew her name, the name of her sister and recognized her mother. She could not tell me her age. The discs are sharp with positive venous pulsations bilaterally. There are no exudates, hemorrhages, or blood vessel changes seen. Pupils are 4 mm bilaterally and reactive to light. Extraocular eye muscles are intact without nystagmus. Visual acuity and visual gutierrez seem normal grossly to confrontation. There are no deficits to sensation in the face in all 3 distributions of the fifth cranial nerve bilaterally. Corneal reflexes are positive bilaterally. Facial strength and symmetry was normal bilaterally. Hearing seems normal to whisper and finger rub bilaterally. Palate moves well without asymmetry. There is normal sternocleidomastoid and trapezius (shoulder shrug) strength bilaterally. Tongue is midline with good strength bilaterally. Neck has a full range of motion without discomfort. There are no cervical bruits bilaterally. There are no cranial or ocular bruits. Heart is without murmur. There is a regular rhythm and rate. Cervical, thoracic, and lumbar spine are nontender to palpation. Gait was not tested but stance sitting up in bed is reasonable. With outstretched arms there is no drift. There are no resting, postural, or action tremors. There is no ataxia with finger to nose testing. There is good facility in the hands. No other abnormal involuntary movements are noted. Motor strength is 5/5 diffusely in the arms bilaterally including deltoids, biceps, triceps, brachioradialis, wrist flexors and extensors, staff physical therapy assistant, and intrinsic hand muscles. Motor strength is 5/5 diffusely in the legs bilaterally including hip flexors, quadriceps, hamstrings, gastrocnemius, tibialis anterior, tibialis posterior, and Peroneii muscles. Toe extensors are normal and there is good bulk in the extensor digitorum brevis muscles bilaterally. The limbs have good tone without rigidity or spasticity. There is no atrophy noted in the muscles. Muscle bulk is normal, there is no tenderness to palpation, no myotonia to percussion, and no fasciculations seen. Sensory examination is intact to touch and pin throughout all 4 limbs diffusely. Reflexes are 2/4 in the biceps, triceps, brachioradialis, quadriceps, and Achilles tendons bilaterally. There is no clonus bilaterally. Toes are downgoing with plantar stimulation bilaterally. Peripheral pulses are present and of normal quality distally in all 4 limbs. There is no peripheral edema noted in the limbs. Results & Data Vital Signs (Past 12 Hours) Vital Signs Temp Pulse Resp BP Pulse Ox 06/14/19 07:34 37.0 C 111 H 22 120/79 97 06/14/19 02:55 36.7 C 100 H 20 127/66 92 06/13/19 22:55 37.2 C 110 H 18 112/63 94 PG Care Time/CCT Total # of Minutes Spent Total Time Spent with Patient: Total time spent is greater than 50% in coordination of care (as documented) at patient's floor/unit and/or counseling patient:
[2019-06-14] MEDS: CEFDINIR 125 MG/5 ML 60 ML BTL PO SCH ×2 (10:12→21:05)
[2019-06-14] MEDS: LACOSAMIDE 50 MG TABLET PO SCH ×2 (10:13→21:04)
[2019-06-14] MEDS: PRIMIDONE 250 MG TAB PO SCH ×4 (10:13→21:05)
[2019-06-14] MEDS ORDERED: VALPROATE SOD 500 MG in DEXTROSE 5% 50 ML IV ONE (10:15)
--- NOTE | 2019-06-14 12:52 | Electrocardiogram Report ---
Test Reason : Blood Pressure : / mmHG Vent. Rate : 100 BPM Atrial Rate : 100 BPM P-R Int : 162 ms QRS Dur : 088 ms QT Int : 362 ms P-R-T Axes : 061 036 029 degrees QTc Int : 466 ms Normal sinus rhythm Possible Left atrial enlargement Low voltage QRS Septal infarct , age undetermined Abnormal ECG When compared with ECG of 17-JUN-2017 11:07, Premature ventricular complexes are no longer Present Septal infarct is now Present Confirmed by Reji Chun ([id number]) on 06/14/2019 12:51:56 PM Referred By: REFERRED SELF Confirmed By:Reji Chun
[2019-06-14] MEDS: NYSTATIN SUSP 500,000 U/5 ML UDC PO SCH ×2 (17:01→21:05)
--- NOTE | 2019-06-14 18:30 | Hospitalist Progress Note ---
Date of Service June 14, 2019 Assessment & Plan (1) Status epilepticus: Appreciate neurology consultation. Recommendations - 1. lower vimpat to 100mg BID with ultimate goal of weaning this off 2. finish IV load of depakote; then start depakote sprinkles 500mg BID 3. depakote level in am 4. continue primidone Agree with Dr Avila that obtaining MRI would be very difficult without giving her sedation. Would avoid such. NO recent head CT. Thus, will obtain head CT to r/o pathology (brain mets from breast ca, etc). (2) Encephalopathy: Could be metabolic from UTI. Could be metabolic from recurrent seizures. Hospital psychosis also possible. supportive care. reinforce sleep-wake cycle. discussed delirium with pt's mother and sister. (3) UTI (urinary tract infection): No culture by report sent at outside hospital. Has been on antibiotics for several days. U/a here wnl. Doubt our urine cx will grow any pathogen. Finish cefdinir course; today is ~day 4 or 5. Complete 7 days. 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 s/p lumpectomy (01/2019) and radiation (finished 03/2019). liquid tamoxifen 20mg was prescribed by oncology however is not taking due to family concerns about side effects. Follows with Dr. Leahy from [facility]. CT head today - r/o intracranial mets. (5) Hypophosphatasia: Repeat phos level today wnl (6) Acid reflux disease: continue PPI (7) Developmental delay, severe: (8) Candidiasis of mouth and esophagus: start nystatin 5cc qid x 7-10 days likely due to recent abx usage (9) Hyponatremia: chronic, dating back to at least 2017. SIADH? will check urine osm, serum osm, urine Na in am. if labs c/w SIADH then fluid restrict to 1500cc/day and consider salt tablet. (10) Nonsustained ventricular tachycardia: 2 runs of such since admission. no apparent symptoms. will obtain echo to r/o cardiomyopathy and other structural abnormalities recent K and mag were normal (11) DVT prophylaxis: SCDs for now if she stays beyond tomorrow then add chemical DVT proph family updated at bedside care d/w Dr Avila from neurology Subjective pt's sister and mother were at bedside during the visit. both said that Lise was acting quite confused. she apparently had had a seizure this am after Dr Avila had performed his consult. when Lise's mother took her to [facility] last week it was due to recurrent seizures. CT head was not performed. u/a was apparently suggestive of UTI but urine cx was not sent. she has been taking omnicef since the ER visit in [place] last week. Lise's mother states she is eating well and besides the "confusion" is at baseline. Review of Systems Review of Systems: Unobtainable due to cognitive status Physical Exam Constitutional: no acute distress dysmorphic; smiling; interactive; does follow commands; only says single words ENMT: Mouth: + oral mucosal abnormality (thrush plaques on tongue and buccal mucosa ); oral mucous membranes not dry maccroglosia Respiratory: normal respiratory effort, lungs clear to auscultation Cardiovascular: Rate/Rhythm: + tachycardic Heart Sounds: normal S1 and normal S2; no murmur Vessels: posterior tibial pulses present and dorsalis pedis pulses present; no JVD Extremities: no edema Gastrointestinal (Abdomen): normal bowel sounds, soft, nontender, no hepatospl enomegaly Neurologic: moves all extremities (no focal deficits ) Psychiatric: Orientation: alert and oriented to person (responds to name ) Results & Data Vital Signs (Past 12 Hours) Vital Signs Temp Pulse Resp BP Pulse Ox 06/14/19 15:43 36.8 C 120 H 20 131/79 96 06/14/19 11:53 36.8 C 113 H 18 124/77 98 06/14/19 07:34 37.0 C 111 H 22 120/79 97 Laboratory Results Laboratory Results - last 24 hr 06/14/19 06/14/19 05:52 05:52 Sodium 132 L Potassium 4.3 Chloride 103 Carbon Dioxide 25 Anion Gap 4.0 BUN 5 L Creatinine 0.36 L Est Cr Clr Drug Dosing 124.3 Est GFR ( Amer) 140.7 Est GFR (Non-Af Amer) 121.4 BUN/Creatinine Ratio 13.1 Glucose 90 Calcium 8.2 L Phosphorus 3.0 D Valproic Acid 27 L PG Care Time/CCT Total # of Minutes Spent Total Time Spent with Patient: Total time spent is greater than 50% in coordination of care (as documented) at patient's floor/unit and/or counseling patient:
[2019-06-14] MEDS: DIVALPROEX SODIUM SPRINKLE 125 MG CAP PO SCH (19:21)
[2019-06-14] MEDS: clonazePAM 0.5 MG TAB PO SCH (19:24)
[2019-06-14] MEDS: ACETAMINOPHEN 325 MG TAB PO PRN (19:24)
--- NOTE | 2019-06-14 20:57 | CT Scan Report ---
CT head/brain wo con CT DOSE: 440.81 mGycm HISTORY: Seizure seizure d/o, breakthrough seizures TECHNIQUE: Multiaxial CT images of the head were performed without the use of intravenous contrast. A dose lowering technique was utilized adhering to the principles of ALARA. Comparison: 06/17/2017 Findings: The paranasal sinuses and mastoid air cells are clear. The calvarium and skull base are int act. The ventricles and sulci are within normal limits. There is no mass, hematoma, midline shift, or acute infarct. Impression: No acute intracranial abnormality. ACT 112: Negative or not required by law. The above report was generated using voice recognition software. It may contain grammatical, syntax or spelling errors. Electronically signed by: Jarek Jewell M.D. 06/14/2019 8:56 PM
[2019-06-15] MEDS: PANTOprazole 40 MG TAB PO SCH (05:44)
[2019-06-15] MEDS: ACETAMINOPHEN 325 MG TAB PO PRN (05:48)
[2019-06-15 06:38] LABS: BUN Creatinine Ratio 15.3 (10-20); Calcium 8.8 mg/dl (8.5-10.1); Est GFR (African American) 138.2; Est GFR (Non-African American) 119.3; Potassium 4.1 mmol/L (3.5-5.1)
[2019-06-15] MEDS: DIVALPROEX SODIUM SPRINKLE 125 MG CAP PO SCH (07:56)
[2019-06-15] MEDS: PRIMIDONE 250 MG TAB PO SCH ×2 (07:56→13:36)
[2019-06-15] MEDS: LACOSAMIDE 50 MG TABLET PO SCH (07:57)
[2019-06-15] MEDS: NYSTATIN SUSP 500,000 U/5 ML UDC PO SCH ×2 (07:57→13:36)
[2019-06-15] MEDS: CEFDINIR 125 MG/5 ML 60 ML BTL PO SCH (07:57)
[2019-06-15] MEDS ORDERED: CONSULT PHARMACY STA (15:00)
[2019-06-15] MEDS ORDERED: LACOSAMIDE 50 MG TABLET PO SCH (15:15)
[2019-06-15] MEDS ORDERED: DIVALPROEX SODIUM SPRINKLE 125 MG CAP PO SCH (15:15)
--- NOTE | 2019-06-15 15:22 | Discharge Summary ---
Date of Service June 15, 2019 Admission HPI Per Admitting Provider 54 y/o F who was brought in by her family due to concerns of worsening seizures. Family states that pt was noted to have a fever on Saturday. She has a hx of seizures, but her last seizure was in July. She started to have seizures on and was taken to the ED in [place]. She was dx with UTI and started on cefdenir at that time. ED spoke with Dr. Alexandra's office and it was recommended that her vimpat be increased from 10mg to 15mg. Pt has been taking the cefdenir since that time. They did attempt to give an increased vinpat dose on , however pt seemed worse with that dosing so they have not continued with this. Family states that pt has had no specific complaints to them, but that she has been overall less communicative. She can generally express if she has pain or doesn't feel well, ask for things, etc, but has not been talking much the last few days. Her seizures have gotten worse the last few days. She has been tolerating her usual PO, which is liquids, pureed foods. No further fever per family. No v/d with entire episode. There have been no c/o headaches or vision changes recently. Family feels pt's seizures are different this week and the worst they have seen from her. Pt denies pain, n/v. Family denies SOB, chest pain, abd pain, n/v/c/d, LE pain or swelling. Pt had followed with Dr. Perkins, who has recently left the area. She has an appt with Dr. Alexandra on Saturday. Pt had a recent dx of breast cancer. She had surgery for this in January and finished radiation in March. She is supposed to be taking a liquid tamoxifen, however mother only gave it for about 1.5 months due to pt "acting funny" and appearing to "have infections" while on this. "It just had too many side effects. I wasn't comfortable to keep giving it." She has upcoming f/u with Dr. Leahy. Pt was noted to have a tonic clonic seizure in the ED. She was given ativan and this resolved. Principal Diagnosis Pt is doing much better. She did have a "small seizure" last night, but it resolved quickly. She has not had any yet today. She is eating without issue. She does seem a bit sluggish to them, but overall better. Pt denies fever, SOB, chest pain, abd pain, n/v/c/d, LE pain or swelling. Discharge Exam Constitutional well nourished and cooperative; no acute distress Eyes normal visual gutierrez by confrontation and + anicteric sclerae Neck normal visual inspection and trachea midline Respiratory normal respiratory effort, lungs clear to auscultation Cardiovascular Rate/Rhythm: regular rate and regular rhythm Gastrointestinal (Abdomen) Inspection/Auscultation: abdomen not distended Percussion/Palpation: abdomen soft; abdomen nontender Musculoskeletal Head/Neck/Chest: normocephalic and head atraumatic Skin no rashes, warm and dry Neurologic awake Speech / Cognition: + abnormal speech Psychiatric Orientation: alert Affect: euthymic affect Discharge Data Allergies Allergy/AdvReac Type Severity Reaction Status Date / Time levetiracetam Allergy Unknown unknown Unverified 06/13/19 08:53 pregabalin Allergy Unknown unkown Unverified 06/13/19 08:53 Consultations 06/13/19 13:07 Consult Case Management - Discharge Planning Routine Consult Neurology Stat Ordered Studies 06/14/19 18:30 CT head/brain wo con Routine Hospital Course (1) Status epilepticus: Appreciate neurology consultation. Recommendations - 1. lower vimpat to 100mg BID with ultimate goal of weaning this off 2. finish IV load of depakote; then start depakote sprinkles 500mg BID 3. depakote level WNL 4. continue primidone CT head neg for mass/mets Neuro planning for MRI as outpt (2) Encephalopathy: Could be metabolic from UTI. Could be metabolic from recurrent seizures. Hospital psychosis also possible. supportive care. reinforce sleep-wake cycle. discussed delirium with pt's mother and sister. Discussed that while pt is on both depakote and vimpat, she may be more sedated or sluggish until vimpat is weaned off (3) UTI (urinary tract infection): No culture by report sent at outside hospital. Has been on antibiotics for several days. U/a here wnl. Doubt our urine cx will grow any pathogen. Finish cefdinir course, plan from prior ED visit was 7 days. 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 s/p lumpectomy (01/2019) and radiation (finished 03/2019). liquid tamoxifen 20mg was prescribed by oncology however is not taking due to family concerns about side effects. Follows with Dr. Leahy from [facility]. CT head today - r/o intracranial mets. (5) Hypophosphatasia: Repeat phos level today wnl (6) Acid reflux disease: continue PPI (7) Developmental delay, severe: Family will stay with pt at all times at their preference Advised that they are to let nursing know if they leave bedside (8) Candidiasis of mouth and esophagus: start nystatin 5cc qid x 7-10 days likely due to recent abx usage (9) Hyponatremia: chronic, dating back to at least 2016. SIADH? will check urine osm, serum osm, urine Na in am. if labs c/w SIADH then fluid restrict to 1500cc/day and consider salt tablet. (10) Nonsustained ventricular tachycardia: 2 runs of such since admission. no apparent symptoms. will obtain echo to r/o cardiomyopathy and other structural abnormalities recent K and mag were normal (11) DVT prophylaxis: SCDs for now Total Time Total Time Spent Total Time Spent (In Minutes): >30 Total Time Includes: Examination of the Patient, Discharge Planning, Medication Reconciliation and Other Discharge Plan Discharge Items Patient Disposition: Home - Self-Care Reason For Visit: SEIZURE ACTIVITY Discharge Diagnosis: Seizures Activity: Resume your previous activity Non-emergency contact: Neurologist Call non-emergency contact if: your symptoms worsen Follow-up/Referrals: María Tian MD [Primary Care Provider] - Diet: Regular Diet Comment: Resume the same diet you were taking prior to admission Addtl Attending Provider Instructions: You have been getting both the Vimpat and the depakote sprinkles at 8am and 8pm for the twice a day dosing. You can continue at those times on discharge If you are unable to fill your prescriptions with your pharmacy when they open tomorrow, call the hospital and we can figure out other arrangements While you are weaning off of the Vimpat, you may be more sleepy and slower to respond due to the overlapping medications. This is normal. Call Dr. Avila or return to the ED if there are questions or concerns about the medications. You should follow up with Dr. Avila in 3-4 weeks at the office. You should follow up with Dr. Tian in 1 week Pending Studies at Discharge: No Stand-Alone Forms: [facility], Smoking Cessation Medications and DC Order Prescriptions: New nystatin 100,000 unit/mL Suspension 5 ml PO QID Qty: 80 RF: 1 divalproex 125 mg Capsule, Delayed Rel Sprinkle 500 mg PO BID Qty: 60 RF: 1 Vimpat 50 mg Tablet 100 mg PO BID Qty: 60 RF: 1 Continued clonazepam 0.5 mg tablet,disintegrating 0.5 mg PO .COMPLEX 30 Days Qty: 34 RF: 5 Prolia 60 mg/mL syringe 60 mg SQ Q6M RF: 0 omeprazole 20 mg capsule,delayed release(DR/EC) 20 mg PO DAILYBB RF: 0 primidone 250 mg tablet 250 mg PO QID RF: 0 cefdinir 250 mg/5 mL suspension for reconstitution 250 mg PO BID RF: 0 Discontinued Vimpat 10 mg/mL solution 150 mg PO BID RF: 0 Discharge Orders: Discharge Order (Routine); Ordered 06/15/19 Ordered By: Majo Rodriguez Admission Data Admit Date/Time: 06/13/19 12:03 Attending Provider: Majo Rodriguez Admit Provider: Majo Rodriguez Primary Care Provider: María Tian Other Providers: Jack Alexandra Other Interventions: Discharge Summary Assessment (RN) Last Done: 06/15/19 15:45 DC Date/Time DO NOT enter until pt leaves facility: 06/15/19 16:30
[2019-06-17 15:05] LABS: Primidone, Serum 5.7 mg/L (5.0-12.0)
== END 2019-06-15 16:30 | disposition home or self-care (01) | DRG 100 ==
LOC: ED 08:07 → SUATTDRO 12:03 → 2S 12:03 → 2E 15:42